=== PATIENT | female | born 1960 | race African-American/Black ===

== ENCOUNTER 2024-04-09 10:43 | Inpatient (IN) | payer MEDICAID ==
[~2024-04-09] VITALS: Ht 154.9 cm; Wt 44.0 kg
[2024-04-09 11:31] LABS: BASOPHILS % 0.2 % (0.0-2.0); EOSINOPHILS % 0.1 % (0.0-5.0); HEMATOCRIT. 27.6 % (36.0-48.0); HEMOGLOBIN. 8.8 g/dL (12.0-16.0); LYMPHOCYTES % 12.9 % (20.0-50.0); MEAN CORPUSCULAR HEMOGLOBIN 31.2 pg (28.0-32.0); MEAN CORPUSCULAR HGB CONC 31.8 g/dL (31.0-37.0); MEAN PLATELET VOLUME 8.2 fl (7.4-10.4); MONOCYTES % 4.6 % (2.0-8.0); NEUTROPHILS % 82.2 % (40.0-76.0); PLATELET 273 x1000/uL (130-400); RED BLOOD CELL COUNT 2.82 mill/uL (4.2-5.4); RED CELL DISTRIBUTION WIDTH 15.7 % (11.6-14.6)
[2024-04-09 11:49] LABS: CHLORIDE 110 mEq/L (98-107); POTASSIUM 4.8 mEq/L (3.5-5.1); SODIUM 138 mEq/L (136-145)
[2024-04-09 11:50] LABS: CARBON DIOXIDE 20 mEq/L (21-32)
[2024-04-09 11:51] LABS: CALCIUM 10.3 mg/dL (8.7-10.4)
[2024-04-09 11:55] LABS: CREATININE 1.4 mg/dL (0.6-1.0); GLUCOSE 113 mg/dL (70-105); UREA NITROGEN BLOOD 28 mg/dL (9-23)
[2024-04-09 11:57] LABS: ALANINE AMINOTRANSFERASE 14 IU/L (10-49); ALBUMIN 3.9 g/dL (3.2-4.8); ASPARTATE AMINOTRANSFERASE 15 IU/L (<34); BILIRUBIN TOTAL 0.4 mg/dL (0.1-1.0)
[2024-04-09 11:58] LABS: PROTEIN TOTAL 6.1 g/dL (6.0-8.3)
[2024-04-09 12:30] LABS: TROPONIN I HIGH SENSITIVITY 39 ng/L (3.0-34)
[2024-04-09] MEDS: LACTATED RINGERS 500 ML IV SCH (15:09)
[2024-04-09] MEDS: ENOXAPARIN 30MG/0.3ML SYR SUBCUT ONE (15:20)
[2024-04-09] MEDS ORDERED: DOCUSATE SODIUM 100MG CAPSULE PO PRN (15:30)
[2024-04-09] MEDS ORDERED: GUAIFENESIN 200MG/10ML SUGAR FREE UDC PO PRN (15:30)
[2024-04-09] MEDS ORDERED: ACETAMINOPHEN 325MG TABLET PO PRN (15:30)
[2024-04-09] MEDS ORDERED: MAGNESIUM/ALUMINUM HYDROXIDE/SIMETHICONE 30ML UDC PO PRN (15:30)
[2024-04-09] MEDS ORDERED: IPRATROPIUM/ALBUTEROL 0.5-3(2.5)MG/3ML NEB HHN PRN (15:30)
[2024-04-09] MEDS ORDERED: CLONIDINE 0.1MG TABLET PO PRN (15:30)
[2024-04-09 16:10] LABS: PHOSPHORUS 3.2 mg/dL (2.5-4.9)
[2024-04-09] MEDS ORDERED: CEFTRIAXONE 250 MG in DEXTROSE 5% WATER 50 ML IV SCH (16:15)
[2024-04-09] MEDS: CEFTRIAXONE 1GM/50ML 50ML IV SCH (16:30)
[2024-04-09] MEDS: AZITHROMYCIN 500MG/250ML 250 ML IV SCH (16:30)
[2024-04-09] MEDS: DEXT 5%/LACTATED RINGERS 1,000 ML IV SCH (16:46)
[2024-04-09 17:35] LABS: TROPONIN I HIGH SENSITIVITY 37 ng/L (3.0-34)
[2024-04-09 19:19] LABS: INR 1.1; PROTHROMBIN TIME 11.9 sec (9.6-11.0)
[2024-04-09 19:55] LABS: CLARITY URINE CLEAR (CLEAR); COLOR URINE YELLOW (YELLOW); GLUCOSE URINE NEGATIVE (NEGATIVE); KETONES URINE NEGATIVE (NEGATIVE); LEUKOCYTE ESTERASE URINE 3+ (NEGATIVE); NITRITE URINE NEGATIVE (NEGATIVE); OCCULT BLOOD URINE NEGATIVE (NEGATIVE); PH URINE 6.5 (4.5-8.0); PROTEIN URINE 1+ (NEGATIVE); SPECIFIC GRAVITY URINE 1.025 (1.005-1.030); UROBILINOGEN URINE 0.2 E.U./dL (0.2-1.0)
[2024-04-09 20:13] LABS: *AMPHETAMINES SCREEN URINE NEGATIVE (NEGATIVE); *BARBITURATES SCREEN URINE NEGATIVE (NEGATIVE); *BENZODIAZEPINES SCREEN URINE NEGATIVE (NEGATIVE); *COCAINE SCREEN URINE NEGATIVE (NEGATIVE)
[2024-04-09 20:14] LABS: CANNABINOID URINE SCREEN NEGATIVE (NEGATIVE); ECSTASY MDMA SCREEN URINE NEGATIVE (NEGATIVE); METHADONE URINE SCREEN NEGATIVE (NEGATIVE); OPIATES URINE SCREEN NEGATIVE (NEGATIVE); PHENCYCLIDINE URINE SCREEN NEGATIVE (NEGATIVE)
[2024-04-09 20:46] LABS: BACTERIA URINE 1+; RBC URINE 0-2 /hpf (0-2); SQUAMOUS EPITHELIAL CELL URINE 1+ /lpf (RARE/1+)
[2024-04-09 20:47] LABS: WBC URINE 50-100 /hpf (0-2)
[2024-04-10 06:19] LABS: CHLORIDE 110 mEq/L (98-107); POTASSIUM 4.4 mEq/L (3.5-5.1); SODIUM 138 mEq/L (136-145)
[2024-04-10 06:22] LABS: CARBON DIOXIDE 23 mEq/L (21-32); INR 1.1; PROTHROMBIN TIME 11.9 sec (9.6-11.0)
[2024-04-10 06:23] LABS: CALCIUM 9.8 mg/dL (8.7-10.4)
[2024-04-10 06:28] LABS: ALANINE AMINOTRANSFERASE 12 IU/L (10-49); CREATININE 1.2 mg/dL (0.6-1.0); GLUCOSE 96 mg/dL (70-105); TRIGLYCERIDE 122 mg/dL (0-150); UREA NITROGEN BLOOD 25 mg/dL (9-23)
[2024-04-10 06:29] LABS: CHOLESTEROL 125 mg/dL (<200); LDL CHOLESTEROL 73 mg/dL (5-100); T4 FREE 1.23 ng/dL (0.89-1.76); THYROID STIMULATING HORMONE 1.22 uIU/mL (0.55-4.78)
[2024-04-10 06:30] LABS: ALBUMIN 3.4 g/dL (3.2-4.8); ASPARTATE AMINOTRANSFERASE 14 IU/L (<34); BILIRUBIN TOTAL 0.3 mg/dL (0.1-1.0); HDL CHOLESTEROL 34 mg/dL (>65); PROTEIN TOTAL 5.2 g/dL (6.0-8.3)
[2024-04-10] MEDS: PANTOPRAZOLE 40MG DR TABLET PO SCH (06:37)
[2024-04-10 07:14] LABS: BASOPHILS % 0.2 % (0.0-2.0); EOSINOPHILS % 0.1 % (0.0-5.0); HEMATOCRIT. 23.8 % (36.0-48.0); HEMOGLOBIN. 7.5 g/dL (12.0-16.0); LYMPHOCYTES % 16.6 % (20.0-50.0); MEAN CORPUSCULAR HEMOGLOBIN 30.7 pg (28.0-32.0); MEAN CORPUSCULAR HGB CONC 31.7 g/dL (31.0-37.0); MEAN CORPUSCULAR VOLUME 96.8 fL (81.0-99.0); MEAN PLATELET VOLUME 8.8 fl (7.4-10.4); MONOCYTES % 6.2 % (2.0-8.0); NEUTROPHILS % 76.9 % (40.0-76.0); PLATELET 241 x1000/uL (130-400); RED BLOOD CELL COUNT 2.46 mill/uL (4.2-5.4); RED CELL DISTRIBUTION WIDTH 15.7 % (11.6-14.6); WHITE BLOOD COUNT 6.4 x1000/uL (4.5-11.0)
[2024-04-10 11:49] LABS: TROPONIN I HIGH SENSITIVITY 42 ng/L (3.0-34)
[2024-04-10] MEDS ORDERED: DIATR MEGLU/DIATRIZOATE SOLN 30ML PO SCH (13:00)
[2024-04-10] MEDS: ENOXAPARIN 40MG/0.4ML SYR SUBCUT SCH (15:40)
[2024-04-10 16:26] LABS: IRON 35 ug/dL (50-170)
[2024-04-10 16:28] LABS: TOTAL IRON BINDING CAPACITY 220 ug/dl (250-425)
[2024-04-10 16:31] LABS: FERRITIN 359 ng/mL (10-291); VITAMIN B12 SERUM 205 pg/mL (211-911)
[2024-04-10 16:34] LABS: FOLIC ACID (FOLATE) SERUM 3.96 ng/mL (>5.38)
[2024-04-10] MEDS: FOLIC ACID 1MG TABLET PO SCH (22:12)
[2024-04-10] MEDS: CYANOCOBALAMIN 1000MCG/ML VIAL SUBCUT SCH (22:12)
[2024-04-10] MEDS: AZITHROMYCIN 500MG/250ML 250 ML IV SCH (22:22)
[2024-04-10] MEDS: CEFTRIAXONE 1GM/50ML 50ML IV SCH (22:23)
[2024-04-10 22:53] VITALS: BP 114/88; PULSE 114; RESP 24; TEMP 36.3624
[2024-04-11] VITALS (10 sets, daily range): BP systolic 117–141; BP diastolic 77–99; PULSE 88–95; RESP 17–22; TEMP 36.28068–37.05852; O2SAT 95–99
[2024-04-11] MEDS: MAGNESIUM 2 G PREMIX 50 ML IV NR ×2 (03:45→14:41)
[2024-04-11] MEDS: DIATR MEGLU/DIATRIZOATE SOLN 30ML ONE ×2 (06:00→13:42)
[2024-04-11 07:27] LABS: POTASSIUM 4.1 mEq/L (3.5-5.1)
[2024-04-11 07:28] LABS: CALCIUM 10.3 mg/dL (8.7-10.4)
[2024-04-11 07:31] LABS: CREATININE 1.3 mg/dL (0.6-1.0)
[2024-04-11 07:58] LABS: BASOPHILS % 0.2 % (0.0-2.0); DIFFERENTIAL COMMENT 0; HEMATOCRIT. 21.8 % (36.0-48.0); LYMPHOCYTES % 7.7 % (20.0-50.0); MEAN CORPUSCULAR HEMOGLOBIN 30.7 pg (28.0-32.0); MEAN CORPUSCULAR HGB CONC 31.7 g/dL (31.0-37.0); MEAN CORPUSCULAR VOLUME 96.8 fL (81.0-99.0); MEAN PLATELET VOLUME 8.8 fl (7.4-10.4); MONOCYTES % 5.2 % (2.0-8.0); NEUTROPHILS % 86.9 % (40.0-76.0); PLATELET 219 x1000/uL (130-400); RED BLOOD CELL COUNT 2.25 mill/uL (4.2-5.4); RED CELL DISTRIBUTION WIDTH 15.7 % (11.6-14.6); WHITE BLOOD COUNT 8.6 x1000/uL (4.5-11.0)
[2024-04-11 08:56] LABS: HEMOGLOBIN. 6.9 g/dL (12.0-16.0)
[2024-04-11] MEDS: IOHEXOL-300 100 ML BOTTLE ONE (14:08)
[2024-04-11] MEDS: ASCORBIC ACID 500 MG TABLET PO SCH (18:51)
[2024-04-11] MEDS: FERROUS SULFATE 325MG TABLET PO SCH (18:51)
[2024-04-12] VITALS (7 sets, daily range): BP systolic 132–159; BP diastolic 84–95; PULSE 85–104; RESP 16–21; TEMP 36.16956–37.2252; O2SAT 94–99
[2024-04-12 00:09] LABS: BASOPHILS % 0.2 % (0.0-2.0); EOSINOPHILS % 0.2 % (0.0-5.0); HEMATOCRIT. 31.4 % (36.0-48.0); HEMOGLOBIN. 10.1 g/dL (12.0-16.0); LYMPHOCYTES % 10.7 % (20.0-50.0); MEAN CORPUSCULAR HEMOGLOBIN 30.4 pg (28.0-32.0); MEAN CORPUSCULAR HGB CONC 32.1 g/dL (31.0-37.0); MEAN CORPUSCULAR VOLUME 94.5 fL (81.0-99.0); MEAN PLATELET VOLUME 8.5 fl (7.4-10.4); NEUTROPHILS % 83.9 % (40.0-76.0); PLATELET 209 x1000/uL (130-400); RED BLOOD CELL COUNT 3.32 mill/uL (4.2-5.4); RED CELL DISTRIBUTION WIDTH 17.1 % (11.6-14.6); WHITE BLOOD COUNT 8.8 x1000/uL (4.5-11.0)
[2024-04-12 06:49] LABS: BASOPHILS % 0.3 % (0.0-2.0); EOSINOPHILS % 0.1 % (0.0-5.0); HEMATOCRIT. 32.4 % (36.0-48.0); HEMOGLOBIN. 10.2 g/dL (12.0-16.0); LYMPHOCYTES % 11.5 % (20.0-50.0); MEAN CORPUSCULAR HEMOGLOBIN 29.8 pg (28.0-32.0); MEAN CORPUSCULAR HGB CONC 31.6 g/dL (31.0-37.0); MEAN CORPUSCULAR VOLUME 94.1 fL (81.0-99.0); MEAN PLATELET VOLUME 8.2 fl (7.4-10.4); MONOCYTES % 4.8 % (2.0-8.0); NEUTROPHILS % 83.3 % (40.0-76.0); PLATELET 188 x1000/uL (130-400); RED BLOOD CELL COUNT 3.44 mill/uL (4.2-5.4); RED CELL DISTRIBUTION WIDTH 17.2 % (11.6-14.6); WHITE BLOOD COUNT 7.6 x1000/uL (4.5-11.0)
[2024-04-12 07:02] LABS: CALCIUM 10.7 mg/dL (8.7-10.4)
[2024-04-12 07:06] LABS: CREATININE 1.2 mg/dL (0.6-1.0)
[2024-04-12] MEDS ORDERED: CYANOCOBALAMIN 1000MCG/ML VIAL IM SCH (09:00)
[2024-04-12] MEDS: BARIUM SULFATE 176 GM SUSP.RECON ONE (10:14)
[2024-04-12] MEDS: EZ-HD SUSPENSION(BARIUM SULFATE 340GM) PO ONE (10:15)
[2024-04-12] MEDS: CYANOCOBALAMIN 1000MCG/ML VIAL SUBCUT SCH (10:25)
[2024-04-12] MEDS: IPRATROPIUM/ALBUTEROL 0.5-3(2.5)MG/3ML NEB HHN SCH (17:12)
[2024-04-13] VITALS (10 sets, daily range): BP systolic 124–151; BP diastolic 76–121; PULSE 77–102; RESP 15–22; TEMP 36.16956–36.3918; O2SAT 96–98
[2024-04-13 07:35] LABS: POTASSIUM 4.1 mEq/L (3.5-5.1)
[2024-04-13 07:41] LABS: BASOPHILS % 0.3 % (0.0-2.0); CREATININE 1.3 mg/dL (0.6-1.0); DIFFERENTIAL COMMENT 0; EOSINOPHILS % 0.1 % (0.0-5.0); HEMATOCRIT. 34.8 % (36.0-48.0); HEMOGLOBIN. 10.3 g/dL (12.0-16.0); LYMPHOCYTES % 10.5 % (20.0-50.0); MEAN CORPUSCULAR HEMOGLOBIN 29.8 pg (28.0-32.0); MEAN CORPUSCULAR HGB CONC 29.7 g/dL (31.0-37.0); MEAN CORPUSCULAR VOLUME 100.3 fL (81.0-99.0); MEAN PLATELET VOLUME 8.9 fl (7.4-10.4); MONOCYTES % 5.4 % (2.0-8.0); NEUTROPHILS % 83.7 % (40.0-76.0); PLATELET 168 x1000/uL (130-400); RED BLOOD CELL COUNT 3.47 mill/uL (4.2-5.4); RED CELL DISTRIBUTION WIDTH 18.3 % (11.6-14.6); WHITE BLOOD COUNT 8.4 x1000/uL (4.5-11.0)
[2024-04-13 13:07] LABS: ANTI-PARIETAL CELL AB 13.2 Units (0.0-20.0); INTRINSIC FACTOR BLOCKING ABS 15.7 AU/mL (0.0-1.1)
[2024-04-14] VITALS (12 sets, daily range): BP systolic 102–135; BP diastolic 70–85; PULSE 81–97; RESP 11–28; TEMP 36.114–36.72516; O2SAT 96–100
[2024-04-14] MEDS: DEXT 5%/0.45% NACL 1000ML 1,000 ML IV SCH (00:03)
[2024-04-14 07:37] LABS: BASOPHILS % 0.2 % (0.0-2.0); EOSINOPHILS % 0.1 % (0.0-5.0); HEMATOCRIT. 30.5 % (36.0-48.0); HEMOGLOBIN. 10.2 g/dL (12.0-16.0); LYMPHOCYTES % 8.6 % (20.0-50.0); MEAN CORPUSCULAR HEMOGLOBIN 30.7 pg (28.0-32.0); MEAN CORPUSCULAR HGB CONC 33.4 g/dL (31.0-37.0); MEAN CORPUSCULAR VOLUME 91.8 fL (81.0-99.0); MEAN PLATELET VOLUME 9.1 fl (7.4-10.4); MONOCYTES % 4.6 % (2.0-8.0); NEUTROPHILS % 86.5 % (40.0-76.0); PLATELET 163 x1000/uL (130-400); RED BLOOD CELL COUNT 3.32 mill/uL (4.2-5.4); RED CELL DISTRIBUTION WIDTH 16.4 % (11.6-14.6); WHITE BLOOD COUNT 10.7 x1000/uL (4.5-11.0)
[2024-04-14 07:41] LABS: CARBON DIOXIDE 19 mEq/L (21-32); CHLORIDE 109 mEq/L (98-107); POTASSIUM 3.7 mEq/L (3.5-5.1); SODIUM 136 mEq/L (136-145)
[2024-04-14 07:43] LABS: CALCIUM 10.9 mg/dL (8.7-10.4)
[2024-04-14 07:47] LABS: CREATININE 1.2 mg/dL (0.6-1.0); GLUCOSE 108 mg/dL (70-105); UREA NITROGEN BLOOD 13 mg/dL (9-23)
[2024-04-14 07:50] LABS: PHOSPHORUS 3.5 mg/dL (2.5-4.9)
[2024-04-14 10:04] LABS: PROTHROMBIN TIME 11.3 sec (9.6-11.0)
[2024-04-14] MEDS ORDERED: ONDANSETRON HCL 4MG/2ML INJ IV PRN (11:30)
[2024-04-14] MEDS: LACTATED RINGERS 1,000 ML IV SCH (11:30)
[2024-04-14] MEDS ORDERED: ETOMIDATE 2MG/ML 10ML VIAL IV ONE (11:30)
[2024-04-14] MEDS: HYDROMORPHONE HCL/PF 2MG/ML INJ IV PRN (12:14)
[2024-04-14] MEDS ORDERED: LABETALOL 5MG/ML 4ML INJ IV PRN (12:45)
[2024-04-14] MEDS ORDERED: HYDRALAZINE 20MG/ML VIAL IV PRN (12:45)
[2024-04-14] MEDS: MIDAZOLAM HCL 2 MG/2 ML VIAL IV NR (12:58)
[2024-04-14] MEDS: MAGNESIUM 2 G PREMIX 50 ML IV NR (15:00)
[2024-04-14] MEDS: ONDANSETRON HCL 4MG/2ML INJ IV PRN (18:40)
[2024-04-15] VITALS: BP 105/72; PULSE 102; RESP 14; TEMP 36.22512; O2SAT 98
[2024-04-15 04:00] VITALS: BP 113/73; PULSE 95; RESP 13; TEMP 36.16956; O2SAT 97
[2024-04-15 08:00] VITALS: BP 116/75; PULSE 96; RESP 13; TEMP 36.00288; O2SAT 99
[2024-04-15 12:00] VITALS: PULSE 97; RESP 16; TEMP 36.22512; O2SAT 91
[2024-04-15 16:00] VITALS: BP 127/80; PULSE 98; RESP 15; TEMP 36.44736
[2024-04-15 20:00] VITALS: BP 128/64; PULSE 102; RESP 18; TEMP 36.50292; O2SAT 99
[2024-04-16] VITALS: BP 128/80; PULSE 102; RESP 18; TEMP 36.50292; O2SAT 98
[2024-04-16 02:07] VITALS: BP 107/78; PULSE 95; RESP 18; TEMP 36.50292; O2SAT 99
[2024-04-16 04:00] VITALS: BP 126/84; PULSE 101; RESP 18; TEMP 36.3918; O2SAT 100
[2024-04-16] MEDS: PANTOPRAZOLE SODIUM 40 MG/VIAL IV SCH (08:52)
[2024-04-16] MEDS: CEFAZOLIN 1000MG PREMIX 50 ML IV SCH (12:36)
[2024-04-16 16:05] LABS: POTASSIUM 4.7 mEq/L (3.5-5.1)
[2024-04-16 16:06] LABS: CALCIUM 12.9 mg/dL (8.7-10.4)
[2024-04-16 16:08] LABS: HEMATOCRIT. 32.3 % (36.0-48.0); HEMOGLOBIN. 10.1 g/dL (12.0-16.0); MEAN CORPUSCULAR HEMOGLOBIN 29.8 pg (28.0-32.0); MEAN CORPUSCULAR HGB CONC 31.4 g/dL (31.0-37.0); MEAN CORPUSCULAR VOLUME 94.7 fL (81.0-99.0); MEAN PLATELET VOLUME 9.3 fl (7.4-10.4); PLATELET 155 x1000/uL (130-400); RED BLOOD CELL COUNT 3.41 mill/uL (4.2-5.4); RED CELL DISTRIBUTION WIDTH 16.5 % (11.6-14.6); WHITE BLOOD COUNT 14.7 x1000/uL (4.5-11.0)
[2024-04-16 16:09] LABS: DIFFERENTIAL COMMENT 1
[2024-04-16 16:10] LABS: CREATININE 1.3 mg/dL (0.6-1.0)
[2024-04-16 16:41] LABS: ANISOCYTOSIS 1+; PLATELET ESTIMATE NORMAL
[2024-04-16] MEDS ORDERED: DEXTROSE 50% WATER 50ML SYRINGE IV PRN (17:00)
[2024-04-16] MEDS: DEXT 5%/0.45% NACL 1000ML 1,000 ML IV SCH (17:28)
[2024-04-16 19:46] VITALS: BP 127/82; PULSE 103; RESP 16; TEMP 36.50292
[2024-04-16] MEDS: BLOOD SUGAR DIAGNOSTIC STRIP TEST SCH (22:19)
[2024-04-17] VITALS (7 sets, daily range): BP systolic 122–152; BP diastolic 73–88; PULSE 88–202; RESP 18–20; TEMP 35.89176–36.6696; O2SAT 97–100
[2024-04-17 03:27] LABS: CHLORIDE 109 mEq/L (98-107); POTASSIUM 4.1 mEq/L (3.5-5.1); SODIUM 138 mEq/L (136-145)
[2024-04-17 03:28] LABS: BASOPHILS % 0.2 % (0.0-2.0); CARBON DIOXIDE 22 mEq/L (21-32); HEMATOCRIT. 30.5 % (36.0-48.0); HEMOGLOBIN. 9.8 g/dL (12.0-16.0); LYMPHOCYTES % 7.3 % (20.0-50.0); MEAN CORPUSCULAR VOLUME 93.6 fL (81.0-99.0); MEAN PLATELET VOLUME 8.6 fl (7.4-10.4); MONOCYTES % 5.6 % (2.0-8.0); NEUTROPHILS % 86.9 % (40.0-76.0); PLATELET 158 x1000/uL (130-400); RED BLOOD CELL COUNT 3.26 mill/uL (4.2-5.4); RED CELL DISTRIBUTION WIDTH 16.2 % (11.6-14.6); WHITE BLOOD COUNT 11.4 x1000/uL (4.5-11.0)
[2024-04-17 03:29] LABS: CALCIUM 12.6 mg/dL (8.7-10.4)
[2024-04-17 03:30] LABS: INR 1.1; PROTHROMBIN TIME 11.9 sec (9.6-11.0)
[2024-04-17 03:33] LABS: CREATININE 1.4 mg/dL (0.6-1.0); GLUCOSE 103 mg/dL (70-105); UREA NITROGEN BLOOD 26 mg/dL (9-23)
[2024-04-17 03:35] LABS: ALANINE AMINOTRANSFERASE 10 IU/L (10-49); ASPARTATE AMINOTRANSFERASE 27 IU/L (<34)
[2024-04-17 03:36] LABS: BILIRUBIN TOTAL 0.3 mg/dL (0.1-1.0); PROTEIN TOTAL 4.7 g/dL (6.0-8.3)
[2024-04-17] MEDS: CEFAZOLIN 1000MG PREMIX 50 ML IV NR (12:30)
[2024-04-17 15:06] LABS: A/G RATIO 0.7 (0.7-1.7); ALBUMIN 2.1 g/dL (2.9-4.4); ALPHA-1-GLOBULIN 0.3 g/dL (0.0-0.4); ALPHA-2-GLOBULIN 1.1 g/dL (0.4-1.0); BETA GLOBULIN 0.8 g/dL (0.7-1.3); GAMMA GLOBULINS 0.7 g/dL (0.4-1.8); GLOBULIN TOTAL 2.9 g/dL (2.2-3.9); M-SPIKE 0.5 g/dL (Not Observed)
[2024-04-17] MEDS: IPRATROPIUM/ALBUTEROL 0.5-3(2.5)MG/3ML NEB HHN PRN (17:23)
[2024-04-18] VITALS (8 sets, daily range): BP systolic 120–136; BP diastolic 69–78; PULSE 65–91; RESP 14–20; TEMP 35.8362–36.6696; O2SAT 95–100
[2024-04-18] MEDS: PAMIDRONATE DISODIUM 90 MG in SODIUM CHLORIDE 0.9% 500 ML IV NR (00:45)
[2024-04-18] MEDS: METOCLOPRAMIDE HCL 10MG/2ML VIAL IV SCH (06:14)
[2024-04-18 06:57] LABS: CALCIUM 11.6 mg/dL (8.7-10.4); CARBON DIOXIDE 18 mEq/L (21-32); CHLORIDE 111 mEq/L (98-107); POTASSIUM 3.9 mEq/L (3.5-5.1); SODIUM 139 mEq/L (136-145)
[2024-04-18 07:03] LABS: CREATININE 1.3 mg/dL (0.6-1.0); GLUCOSE 80 mg/dL (70-105)
[2024-04-18 07:05] LABS: PHOSPHORUS 4.2 mg/dL (2.5-4.9)
[2024-04-18 07:10] LABS: HEMATOCRIT. 28.5 % (36.0-48.0); HEMOGLOBIN. 8.8 g/dL (12.0-16.0); MEAN CORPUSCULAR HEMOGLOBIN 29.6 pg (28.0-32.0); MEAN CORPUSCULAR VOLUME 95.7 fL (81.0-99.0); MEAN PLATELET VOLUME 9.4 fl (7.4-10.4); PLATELET 137 x1000/uL (130-400); RED BLOOD CELL COUNT 2.98 mill/uL (4.2-5.4); RED CELL DISTRIBUTION WIDTH 16.5 % (11.6-14.6); WHITE BLOOD COUNT 13.8 x1000/uL (4.5-11.0)
[2024-04-18 07:16] LABS: UREA NITROGEN BLOOD 20 mg/dL (9-23)
[2024-04-18 07:31] LABS: DIFFERENTIAL COMMENT 1
[2024-04-18] MEDS: MAGNESIUM 2 G PREMIX 50 ML IV NR (10:17)
[2024-04-18] MEDS: IPRATROPIUM/ALBUTEROL 0.5-3(2.5)MG/3ML NEB HHN SCH (13:36)
[2024-04-18] MEDS: THIAMINE HCL 100MG TABLET GT SCH (15:16)
[2024-04-19] VITALS (11 sets, daily range): BP systolic 114–144; BP diastolic 66–74; PULSE 85–114; RESP 17–20; TEMP 35.61396–36.33624; O2SAT 95–99
[2024-04-19 01:12] LABS: ANISOCYTOSIS 1+; PLATELET ESTIMATE NORMAL
[2024-04-19 10:24] LABS: HEMATOCRIT. 25.3 % (36.0-48.0); HEMOGLOBIN. 8.1 g/dL (12.0-16.0); MEAN CORPUSCULAR HEMOGLOBIN 30.1 pg (28.0-32.0); MEAN CORPUSCULAR HGB CONC 32.1 g/dL (31.0-37.0); MEAN CORPUSCULAR VOLUME 93.8 fL (81.0-99.0); MEAN PLATELET VOLUME 8.8 fl (7.4-10.4); PLATELET 138 x1000/uL (130-400); RED CELL DISTRIBUTION WIDTH 16.1 % (11.6-14.6); WHITE BLOOD COUNT 7.5 x1000/uL (4.5-11.0)
[2024-04-19 10:27] LABS: CHLORIDE 109 mEq/L (98-107); POTASSIUM 3.3 mEq/L (3.5-5.1); SODIUM 138 mEq/L (136-145)
[2024-04-19 10:28] LABS: CALCIUM 10.7 mg/dL (8.7-10.4); CARBON DIOXIDE 23 mEq/L (21-32)
[2024-04-19 10:29] LABS: DIFFERENTIAL COMMENT 1
[2024-04-19 10:33] LABS: CREATININE 1.3 mg/dL (0.6-1.0); GLUCOSE 103 mg/dL (70-105)
[2024-04-19 10:34] LABS: UREA NITROGEN BLOOD 21 mg/dL (9-23)
[2024-04-19 10:36] LABS: PHOSPHORUS 3.3 mg/dL (2.5-4.9)
[2024-04-19 13:10] LABS: IMMUNOGLOBULIN A 45 mg/dL (87-352); IMMUNOGLOBULIN G 528 mg/dL (586-1602); IMMUNOGLOBULIN M 8 mg/dL (26-217)
[2024-04-19] MEDS: POTASSIUM CHLORIDE 20MEQ/PACKET PO NR (14:59)
[2024-04-19 18:11] LABS: PLATELET ESTIMATE NORMAL
[2024-04-19] MEDS: DEXT 5%/0.45% NACL 1000ML 1,000 ML IV SCH (23:12)
[2024-04-20] VITALS (10 sets, daily range): BP systolic 110–132; BP diastolic 58–79; PULSE 100–113; RESP 16–20; TEMP 35.8362–36.6696; O2SAT 93–100
[2024-04-20] MEDS: ACETAMINOPHEN 325MG TABLET PO PRN (05:15)
[2024-04-20 07:05] LABS: HEMATOCRIT. 24.5 % (36.0-48.0); HEMOGLOBIN. 7.8 g/dL (12.0-16.0); MEAN CORPUSCULAR HEMOGLOBIN 30.6 pg (28.0-32.0); MEAN CORPUSCULAR HGB CONC 31.7 g/dL (31.0-37.0); MEAN CORPUSCULAR VOLUME 96.7 fL (81.0-99.0); MEAN PLATELET VOLUME 9.1 fl (7.4-10.4); PLATELET 94 x1000/uL (130-400); RED BLOOD CELL COUNT 2.53 mill/uL (4.2-5.4); RED CELL DISTRIBUTION WIDTH 16.7 % (11.6-14.6); WHITE BLOOD COUNT 7.9 x1000/uL (4.5-11.0)
[2024-04-20 07:13] LABS: CALCIUM 9.9 mg/dL (8.7-10.4)
[2024-04-20 07:18] LABS: CREATININE 1.3 mg/dL (0.6-1.0)
[2024-04-20 07:21] LABS: DIFFERENTIAL COMMENT 1
[2024-04-20] MEDS: KETOROLAC 15MG/ML VIAL IV PRN (09:32)
[2024-04-20 18:38] LABS: OVALOCYTES 1+; PLATELET ESTIMATE DECREASED
[2024-04-20 18:39] LABS: ANISOCYTOSIS 2+
[2024-04-21] VITALS (10 sets, daily range): BP systolic 109–131; BP diastolic 63–72; PULSE 104–112; RESP 16–20; TEMP 36.22512–36.6696; O2SAT 95–99
[2024-04-21 06:55] LABS: HEMATOCRIT. 23.2 % (36.0-48.0); HEMOGLOBIN. 7.4 g/dL (12.0-16.0); MEAN CORPUSCULAR HEMOGLOBIN 30.6 pg (28.0-32.0); MEAN CORPUSCULAR HGB CONC 31.9 g/dL (31.0-37.0); MEAN CORPUSCULAR VOLUME 95.8 fL (81.0-99.0); MEAN PLATELET VOLUME 9.2 fl (7.4-10.4); PLATELET 84 x1000/uL (130-400); RED BLOOD CELL COUNT 2.43 mill/uL (4.2-5.4); RED CELL DISTRIBUTION WIDTH 16.8 % (11.6-14.6); WHITE BLOOD COUNT 7.8 x1000/uL (4.5-11.0)
[2024-04-21 06:57] LABS: POTASSIUM 4.4 mEq/L (3.5-5.1)
[2024-04-21 07:03] LABS: CREATININE 1.2 mg/dL (0.6-1.0)
[2024-04-21 07:26] LABS: DIFFERENTIAL COMMENT 1
[2024-04-21] MEDS: CYANOCOBALAMIN 1000MCG TABLET GT SCH (08:07)
[2024-04-21 17:58] LABS: ANISOCYTOSIS 1+; PLATELET ESTIMATE DECREASED
[2024-04-22] VITALS (10 sets, daily range): BP systolic 116–135; BP diastolic 61–78; PULSE 54–110; RESP 16–20; TEMP 36.22512–36.50292; O2SAT 93–100
[2024-04-22 10:17] LABS: BG BASE EXCESS -0.1 mmol/L (-2.0-2.0); BG CARBOXYHEMOGLOBIN 0.5 % (0.5-1.5); BG DEOXYHEMOGLOBIN 17.7 % (0.0-5.0); BG FRACTION INSPIRED OXYGEN 21; BG METHEMOGLOBIN 0.3 % (0.0-1.5); BG OXYGEN SATURATION 82.2 % (92.0-98.5); BG OXYHEMOGLOBIN 81.5 % (94.0-97.0); BG PCO2 50.3 mmHg (35.0-45.0); BG PH 7.331 (7.350-7.450); BG PO2 45.4 mmHg (75.0-100.0); BG SAMPLE SITE LEFT RADIAL; BG TOTAL HEMOGLOBIN 8.3 g/dL (12.0-18.0); BG VENT MODE ROOM AIR
[2024-04-22 16:20] LABS: BASOPHILS % 0.2 % (0.0-2.0); EOSINOPHILS % 0.1 % (0.0-5.0); HEMATOCRIT. 24.4 % (36.0-48.0); HEMOGLOBIN. 7.8 g/dL (12.0-16.0); LYMPHOCYTES % 8.4 % (20.0-50.0); MEAN CORPUSCULAR HEMOGLOBIN 30.7 pg (28.0-32.0); MEAN CORPUSCULAR HGB CONC 31.9 g/dL (31.0-37.0); MEAN CORPUSCULAR VOLUME 96.3 fL (81.0-99.0); MEAN PLATELET VOLUME 9.5 fl (7.4-10.4); MONOCYTES % 8.2 % (2.0-8.0); NEUTROPHILS % 83.1 % (40.0-76.0); PLATELET 87 x1000/uL (130-400); RED BLOOD CELL COUNT 2.53 mill/uL (4.2-5.4); RED CELL DISTRIBUTION WIDTH 16.8 % (11.6-14.6); WHITE BLOOD COUNT 7.1 x1000/uL (4.5-11.0)
[2024-04-22 17:43] LABS: POTASSIUM 4.8 mEq/L (3.5-5.1)
[2024-04-22 17:45] LABS: CALCIUM 9.6 mg/dL (8.7-10.4)
[2024-04-22 17:49] LABS: CREATININE 1.2 mg/dL (0.6-1.0)
[2024-04-23] VITALS (9 sets, daily range): BP systolic 102–128; BP diastolic 61–71; PULSE 94–111; RESP 18–20; TEMP 36.28068–36.78072; O2SAT 95–100
[2024-04-23 07:36] LABS: POTASSIUM 5.7 mEq/L (3.5-5.1)
[2024-04-23 07:37] LABS: CALCIUM 9.5 mg/dL (8.7-10.4)
[2024-04-23 07:42] LABS: CREATININE 1.2 mg/dL (0.6-1.0)
[2024-04-23 16:00] LABS: BASOPHILS % 0.4 % (0.0-2.0); HEMATOCRIT. 24.3 % (36.0-48.0); HEMOGLOBIN. 7.6 g/dL (12.0-16.0); LYMPHOCYTES % 12.3 % (20.0-50.0); MEAN CORPUSCULAR HEMOGLOBIN 30.8 pg (28.0-32.0); MEAN CORPUSCULAR HGB CONC 31.1 g/dL (31.0-37.0); MEAN CORPUSCULAR VOLUME 98.9 fL (81.0-99.0); MONOCYTES % 9.8 % (2.0-8.0); NEUTROPHILS % 77.5 % (40.0-76.0); PLATELET 86 x1000/uL (130-400); RED BLOOD CELL COUNT 2.46 mill/uL (4.2-5.4); RED CELL DISTRIBUTION WIDTH 17.5 % (11.6-14.6); WHITE BLOOD COUNT 4.7 x1000/uL (4.5-11.0)
[2024-04-23] MEDS: FUROSEMIDE 40MG/4ML VIAL IVP NR (16:00)
[2024-04-23 19:07] LABS: IMMUNOGLOBULIN E TOTAL 11 IU/mL (6-495)
[2024-04-23] MEDS: MELATONIN 3MG TABLET PO SCH (20:52)
[2024-04-24] VITALS (10 sets, daily range): BP systolic 109–130; BP diastolic 62–73; PULSE 66–101; RESP 18–21; TEMP 35.50284–37.16964; O2SAT 99–100
[2024-04-24 10:28] LABS: BASOPHILS % 0.2 % (0.0-2.0); DIFFERENTIAL COMMENT 0; EOSINOPHILS % 0.2 % (0.0-5.0); LYMPHOCYTES % 11.5 % (20.0-50.0); MEAN CORPUSCULAR HEMOGLOBIN 30.3 pg (28.0-32.0); MEAN CORPUSCULAR HGB CONC 31.4 g/dL (31.0-37.0); MEAN CORPUSCULAR VOLUME 96.5 fL (81.0-99.0); MEAN PLATELET VOLUME 9.6 fl (7.4-10.4); MONOCYTES % 8.8 % (2.0-8.0); NEUTROPHILS % 79.3 % (40.0-76.0); PLATELET 86 x1000/uL (130-400); RED BLOOD CELL COUNT 2.17 mill/uL (4.2-5.4); WHITE BLOOD COUNT 5.3 x1000/uL (4.5-11.0)
[2024-04-24 10:34] LABS: HEMATOCRIT. 20.9 % (36.0-48.0); HEMOGLOBIN. 6.6 g/dL (12.0-16.0)
[2024-04-24 10:38] LABS: POTASSIUM 5.5 mEq/L (3.5-5.1)
[2024-04-24 10:44] LABS: CREATININE 1.3 mg/dL (0.6-1.0)
[2024-04-24 21:59] LABS: BASOPHILS % 0.2 % (0.0-2.0); DIFFERENTIAL COMMENT 0; EOSINOPHILS % 0.1 % (0.0-5.0); MEAN CORPUSCULAR HEMOGLOBIN 30.7 pg (28.0-32.0); MEAN CORPUSCULAR VOLUME 95.9 fL (81.0-99.0); MEAN PLATELET VOLUME 9.7 fl (7.4-10.4); MONOCYTES % 8.3 % (2.0-8.0); NEUTROPHILS % 82.4 % (40.0-76.0); PLATELET 89 x1000/uL (130-400); RED BLOOD CELL COUNT 2.19 mill/uL (4.2-5.4); RED CELL DISTRIBUTION WIDTH 16.7 % (11.6-14.6); WHITE BLOOD COUNT 7.6 x1000/uL (4.5-11.0)
[2024-04-24 22:03] LABS: POTASSIUM 5.5 mEq/L (3.5-5.1)
[2024-04-24 22:09] LABS: CREATININE 1.3 mg/dL (0.6-1.0)
[2024-04-24 22:12] LABS: HEMOGLOBIN. 6.7 g/dL (12.0-16.0)
[2024-04-25] VITALS (9 sets, daily range): BP systolic 123–150; BP diastolic 75–88; PULSE 81–102; RESP 16–21; TEMP 35.0028–36.6696; O2SAT 94–100
[2024-04-25 10:42] LABS: POTASSIUM 5.5 mEq/L (3.5-5.1)
[2024-04-25 10:44] LABS: CALCIUM 8.9 mg/dL (8.7-10.4)
[2024-04-25 10:48] LABS: CREATININE 1.3 mg/dL (0.6-1.0)
[2024-04-25 11:06] LABS: BASOPHILS % 0.3 % (0.0-2.0); HEMATOCRIT. 29.5 % (36.0-48.0); HEMOGLOBIN. 9.4 g/dL (12.0-16.0); LYMPHOCYTES % 9.5 % (20.0-50.0); MEAN CORPUSCULAR HEMOGLOBIN 30.1 pg (28.0-32.0); MEAN CORPUSCULAR HGB CONC 31.8 g/dL (31.0-37.0); MEAN CORPUSCULAR VOLUME 94.6 fL (81.0-99.0); MEAN PLATELET VOLUME 9.7 fl (7.4-10.4); MONOCYTES % 7.4 % (2.0-8.0); NEUTROPHILS % 82.8 % (40.0-76.0); PLATELET 89 x1000/uL (130-400); RED BLOOD CELL COUNT 3.12 mill/uL (4.2-5.4); RED CELL DISTRIBUTION WIDTH 16.3 % (11.6-14.6); WHITE BLOOD COUNT 7.7 x1000/uL (4.5-11.0)
[2024-04-25] MEDS: LORAZEPAM 0.5MG TABLET PO NR (12:45)
[2024-04-25] MEDS ORDERED: THIA100T72 GT (13:35)
[2024-04-25] MEDS ORDERED: FERR-63 PO (13:35)
[2024-04-25] MEDS ORDERED: FAMO-135 PO (13:35)
[2024-04-25] MEDS ORDERED: TOPUD PO (13:35)
[2024-04-25] MEDS ORDERED: FOLI-43 PO (13:35)
[2024-04-25] MEDS ORDERED: CYAN-50 GT (13:44)
[2024-04-25] MEDS ORDERED: ASCO500T20 PO (13:44)
[2024-04-25] MEDS ORDERED: FOLI-43 GT (14:06)
[2024-04-25] MEDS ORDERED: ASCO500T20 GT (14:06)
[2024-04-25] MEDS ORDERED: TOPUD GT (14:06)
[2024-04-25] MEDS ORDERED: FAMO-135 GT (14:06)
[2024-04-25] MEDS ORDERED: FERR-63 GT (14:06)
[2024-04-25 15:11] LABS: CLARITY URINE CLEAR (CLEAR); COLOR URINE YELLOW (YELLOW); GLUCOSE URINE NEGATIVE (NEGATIVE); KETONES URINE NEGATIVE (NEGATIVE); LEUKOCYTE ESTERASE URINE 2+ (NEGATIVE); NITRITE URINE NEGATIVE (NEGATIVE); OCCULT BLOOD URINE 1+ (NEGATIVE); PROTEIN URINE 2+ (NEGATIVE); SPECIFIC GRAVITY URINE 1.012 (1.005-1.030); UROBILINOGEN URINE 0.2 E.U./dL (0.2-1.0)
[2024-04-25 15:38] LABS: BG BASE EXCESS -2.2 mmol/L (-2.0-2.0); BG CARBOXYHEMOGLOBIN 0.7 % (0.5-1.5); BG DEOXYHEMOGLOBIN 11.8 % (0.0-5.0); BG FRACTION INSPIRED OXYGEN 21; BG HCO3 ACT 23.9 mmol/L (22.0-26.0); BG METHEMOGLOBIN 0.3 % (0.0-1.5); BG OXYGEN SATURATION 88.1 % (92.0-98.5); BG OXYHEMOGLOBIN 87.2 % (94.0-97.0); BG PCO2 46.2 mmHg (35.0-45.0); BG PH 7.331 (7.350-7.450); BG PO2 52.7 mmHg (75.0-100.0); BG SAMPLE SITE RIGHT RADIAL; BG TOTAL HEMOGLOBIN 11.7 g/dL (12.0-18.0); BG VENT MODE ROOM AIR
[2024-04-25 15:45] LABS: BACTERIA URINE 1+; SQUAMOUS EPITHELIAL CELL URINE 1+ /lpf (RARE/1+)
[2024-04-26] VITALS: BP 139/81; PULSE 105; RESP 18; TEMP 36.3918; O2SAT 95
[2024-04-26 04:00] VITALS: BP 134/75; PULSE 106; RESP 20; TEMP 36.33624; O2SAT 98
[2024-04-26 08:00] VITALS: BP 152/88; PULSE 101; RESP 18; TEMP 36.6696; O2SAT 100
[2024-04-26] MEDS: SODIUM POLYSTYRENE SULFONATE 15 G/60 ML BOT PO NR (13:30)
[2024-04-26 16:00] VITALS: BP 133/78; PULSE 104; RESP 18; TEMP 36.72516; O2SAT 100
[2024-04-26 18:06] VITALS: BP 152/83; PULSE 100; TEMP 98; O2SAT 100
[2024-04-26 20:00] VITALS: BP 134/85; PULSE 107; RESP 18; TEMP 36.61404; O2SAT 97
== END 2024-04-26 22:23 | disposition home or self-care (01) | DRG 134 ==
LOC: ER 10:43 → EDBEDREQ 12:18 → 5WST 13:24 → EDBEDREQTM 13:27 → EDBEDREQ 13:27 → 5WST 04-10 14:32 → 5EST 04-10 19:43 → 6WST 04-17 00:04
PROVIDERS: ADMIT Hospitalist; ATTEND Hospitalist
PROC: 30233N1 Transfusion of Nonautologous Red Blood Cells into Peripheral Vein, Percutaneous Approach (ICD-10-PCS; principal; 2024-04-11)
PROC: 5A09357 Assistance with Respiratory Ventilation, Less than 24 Consecutive Hours, Continuous Positive Airway Pressure (ICD-10-PCS; 2024-04-14)
PROC: 0DB78ZX Excision of Stomach, Pylorus, Via Natural or Artificial Opening Endoscopic, Diagnostic (ICD-10-PCS; 2024-04-14)
PROC: 0DH63UZ Insertion of Feeding Device into Stomach, Percutaneous Approach (ICD-10-PCS; 2024-04-17)
DX: I26.99 Other pulmonary embolism without acute cor pulmonale (principal); J96.01 Acute respiratory failure with hypoxia; N17.0 Acute kidney failure with tubular necrosis; J69.0 Pneumonitis due to inhalation of food and vomit; G93.41 Metabolic encephalopathy; R13.14 Dysphagia, pharyngoesophageal phase; I31.39 Other pericardial effusion (noninflammatory); D62 Acute posthemorrhagic anemia; J96.02 Acute respiratory failure with hypercapnia; R26.89 Other abnormalities of gait and mobility; I10 Essential (primary) hypertension; J45.909 Unspecified asthma, uncomplicated; R60.1 Generalized edema; M85.80 Other specified disorders of bone density and structure, unspecified site; K80.20 Calculus of gallbladder without cholecystitis without obstruction; R62.7 Adult failure to thrive; E83.42 Hypomagnesemia; R82.81 Pyuria; E04.2 Nontoxic multinodular goiter; M48.56XA Collapsed vertebra, not elsewhere classified, lumbar region, initial encounter for fracture; E87.4 Mixed disorder of acid-base balance; E87.5 Hyperkalemia; M48.54XA Collapsed vertebra, not elsewhere classified, thoracic region, initial encounter for fracture; G62.9 Polyneuropathy, unspecified; K94.21 Gastrostomy hemorrhage; Y83.3 Surgical operation with formation of external stoma as the cause of abnormal reaction of the patient, or of later complication, without mention of misadventure at the time of the procedure; Y92.238 Other place in hospital as the place of occurrence of the external cause; D51.0 Vitamin B12 deficiency anemia due to intrinsic factor deficiency; E83.52 Hypercalcemia; K29.70 Gastritis, unspecified, without bleeding; K22.4 Dyskinesia of esophagus; Z68.1 Body mass index [BMI] 19.9 or less, adult; Z80.3 Family history of malignant neoplasm of breast; Y93.89 Activity, other specified; Y92.89 Other specified places as the place of occurrence of the external cause; Y99.8 Other external cause status
CPT/HCPCS: 36415; 36600; 70491; 71045; 71275; 74177; 74220; 76700; 78227; 80048; 80053; 80061; 80305; 81003; 82164; 82308; 82330; 82375; 82378; 82533; 82607; 82728; 82746; 82784; 82785; 82805; 82962; 83036; 83540; 83550; 83605; 83735; 83880; 83970; 84100; 84145; 84155; 84165; 84439; 84443; 84484; 85025; 86301; 86334; 86340; 86376; 86850; 86900; 86920; 87070; 88305; 88312; 88313; 92610; 93005; 93970; 94640; 94660; 97110; 97116; 97162; 97166; 97530; 99291; A9537; J0456; J0690; J0696; J1170; J1650; J1885; J1940; J2250; J2405; J2430; J2470; J2765; J3420; J3475; J3490; J7040; J7120; P9016; Q9963; Q9967